=== PATIENT | male | born 1980 | race Caucasian/White ===

== ENCOUNTER 2022-05-10 11:26 | Emergency (ER) | payer OTHER ==
[2022-05-10] MEDS ORDERED: Meclizine 25 MG Tab PO ONE (11:52)
[2022-05-10] MEDS ORDERED: Ondansetron 4 MG/2 ML SDV IM ONE (11:53)
[2022-05-10 12:22] LABS: BARBITURATE SCREEN,URINE NEGATIVE (NEGATIVE); BENZODIAZEPINES SCREEN,URINE NEGATIVE (NEGATIVE); METHAMPHETAMINE SCREEN, URINE NEGATIVE (NEGATIVE); THC SCREEN,URINE 50 NG/ML POSITIVE (NEGATIVE)
[2022-05-10 12:23] LABS: BUPRENORPHINE SCREEN,URINE NEGATIVE (NEGATIVE)
[2022-05-10 12:48] LABS: ANION GAP 13.8 mmol/L (5-15)
== END 2022-05-10 13:40 | disposition home or self-care (01) ==
LOC: VM.ED 11:26
DX: H81.10 Benign paroxysmal vertigo, unspecified ear (principal); Z79.899 Other long term (current) drug therapy; Z72.0 Tobacco use
CPT/HCPCS: 36415; 70450; 80053; 80305-QW; 81003; 83735; 84484; 85025; 96372; 99283; 99284; A9270-GY; J2405

== ENCOUNTER 2024-04-24 09:13 | Emergency (ER) | payer OTHER ==
[2024-04-24] MEDS: Diphtheria,Pertussis(Acell),Tetanus Vaccine 0.5 ML Syringe IM ONE (10:17)
== END 2024-04-24 10:30 | disposition home or self-care (01) ==
LOC: VM.ED 09:13
DX: S41.131A Puncture wound without foreign body of right upper arm, initial encounter (principal); Z23 Encounter for immunization; W22.8XXA Striking against or struck by other objects, initial encounter
CPT/HCPCS: 73060-RT; 90471; 90715; 99283-25